=== PATIENT | male | born 1980 | race Hispanic/Latino ===

== ENCOUNTER 2018-12-13 09:37 | Emergency (ER) | payer SELFPAY ==
[2018-12-13 10:19] LABS: Absolute Lymphocytes (CBC) 1.1 K/uL (0.7-4.9); Basophils % 0.3 % (0-1.3); Hematocrit 42.9 % (39.6-49.0); Lymphocytes % 17.5 % (15.3-44.8); MPV 10.8 fL (7.6-11.3); RBC Red Blood Cell Count 4.75 M/uL (4.33-5.43)
[2018-12-13] MEDS ORDERED: NA CHLORIDE 0.9% 1,000 ML ONE (10:38)
[2018-12-13] MEDS ORDERED: ALBUTEROL 2.5 MG/3 ML NEB SOL ONE (10:38)
[2018-12-13 10:42] LABS: Albumin 3.8 g/dL (3.4-5.0); Bilirubin Direct 0.1 mg/dL (0-0.2); Bilirubin Total 0.6 mg/dL (0.2-1.0); Protein, Total 7.9 g/dL (6.4-8.2)
--- NOTE | 2018-12-13 11:14 | RAD REPORT ---
EXAM DESCRIPTION: RAD - Chest Pa And Lat (2 Views) - 12/13/2018 10:21 am CLINICAL HISTORY: COUGHcough, shortness of breath, patient reports flu like symptoms COMPARISON: None. TECHNIQUE: PA and lateral views of the chest were obtained. FINDINGS: The lungs are slightly underinflated. No consolidated parenchyma. Lung markings in each ba se are slightly prominent. No failure or volume overload. Heart size is normal and central vasculatu re is within normal limits. No pleural effusion or pneumothorax seen. No acute bony finding noted. No aortic abnormality. IMPRESSION: Minimal prominence of the bibasilar interstitial markings likely shallow inspiration art ifact. No consolidation to suspect bacterial pneumonia. Minimal interstitial edema or infiltrate in each soumya g base doubtful but not excluded.
--- NOTE | 2018-12-13 11:28 | ER ---
Nurse's Notes [facility] Name: Ismael Colbert Age: 38 yrs Sex: Male : 1980 Arrival Date: 12/13/2018 Time: 09:39 Bed 8 Private MD: Jarrett Howell T Diagnosis: Acute bronchitis;Volume depletion Presentation: 12/13 09:46 Presenting complaint: Patient states: FLU LIKE S/S x5 DAYS. Transition of care: patient bp was not received from another setting of care. Onset of symptoms is unknown. Risk Assessment: Do you want to hurt yourself or someone else? Patient reports no desire to harm self or others. Initial Sepsis Screen: Does the patient meet any 2 criteria? No. Patient's initial sepsis screen is negative. Does the patient have a suspected source of infection? No. Patient's initial sepsis screen is negative. Care prior to arrival: None. 09:46 Method Of Arrival: Ambulatory bp 09:46 Acuity: BARAK 4 bp Triage Assessment: 09:47 General: Appears in no apparent distress. comfortable, Behavior is calm, cooperative, bp appropriate for age. Pain: Denies pain. EENT: No deficits noted. Neuro: No deficits noted. Cardiovascular: Rhythm is sinus rhythm. Respiratory: Airway is patent Breath sounds are clear bilaterally. GI: No signs and/or symptoms were reported involving the gastrointestinal system. : No signs and/or symptoms were reported regarding the genitourinary system. Derm: No deficits noted. Musculoskeletal: No deficits noted. Historical: - Allergies: 09:47 No Known Allergies; bp - Home Meds: 09:47 None [Active]; bp - PMHx: 09:47 None; bp - Immunization history:: Adult Immunizations up to date. - Social history:: Smoking status: Patient/guardian denies using tobacco. - Ebola Screening: : No symptoms or risks identified at this time. Screenin:49 Abuse screen: Denies threats or abuse. Denies injuries from another. Nutritional bp screening: No deficits noted. Tuberculosis screening: No symptoms or risk factors identified. Fall Risk None identified. Assessment: 09:49 General: SEE TRIAGE NOTE. Pain: Pain does not radiate. Pain began 2-3 days ago. bp 11:37 Reassessment: D/C ON HOLD FOR IVF. bp Vital Signs: 09:47 BP 121 / 80; Pulse 83; Resp 18; Temp 98.4; Pulse Ox 98% ; Weight 98.88 kg; Height 5 ft. bp 11 in. (180.34 cm); 09:47 Body Mass Index 30.40 (98.88 kg, 180.34 cm) bp ED Course: 09:39 Patient arrived in ED. ag5 09:40 Jarrett Howell MD is Private Physician. ag5 09:46 Xiang Franco, RN is Primary Nurse. bp 09:47 Triage completed. bp 09:49 Arm band placed on right wrist. bp 09:49 Patient has correct armband on for positive identification. Bed in low position. Call bp light in reach. Side rails up X2. Pulse ox on. NIBP on. 09:49 Patient maintains SpO2 saturation greater than 95% on room air. bp 09:55 Lauren Munoz FNP-C [facility]. snw 09:55 Geovani Canela MD is Attending Physician. snw 10:16 Initial lab(s) drawn, by va, sent to lab. Inserted saline lock: 20 gauge in right ms antecubital area, using aseptic technique. Blood collected. 11:27 Jarrett Howell MD is Referral Physician. snw 12:32 No provider procedures requiring assistance completed. IV discontinued, intact, jl7 bleeding controlled, No redness/swelling at site. Pressure dressing applied. Administered Medications: 10:20 Drug: NS 0.9% 1000 ml Route: IV; Rate: 1 bolus; Site: right antecubital; bp 12:33 Follow up: IV Status: Completed infusion; IV Intake: 1000ml jl7 10:20 Drug: Albuterol 2.5 mg Route: Inhalation; bp 11:35 Drug: predniSONE 40 mg Route: PO; bp 12:33 Follow up: Response: No adverse reaction jl7 11:35 Drug: Pepcid 20 mg Route: PO; bp 12:33 Follow up: Response: No adverse reaction jl7 Intake: 12:33 IV: 1000ml; Total: 1000ml. jl7 Outcome: 11:27 Discharge ordered by . snw 12:32 Discharged to home ambulatory. jl7 12:32 Condition: stable 12:32 Discharge instructions given to patient, Instructed on discharge instructions, follow up and referral plans. medication usage, Demonstrated understanding of instructions, follow-up care, medications, Prescriptions given X 3. 12:34 Patient left the ED. jl7 Signatures: Lauren Munoz, TENNIS BALL COVER CEMENTER-C TENNIS BALL COVER CEMENTER-Anatolyw Nakia Hernandez ms, Jahala RN RN jl7 Xiang Franco, RN RN Mainor, [facility]
--- NOTE | 2018-12-13 11:28 | EDPHYS ---
Physician Documentation [facility] Name: Ismael Colbert Age: 38 yrs Sex: Male : 1980 Arrival Date: 12/13/2018 Time: 09:39 Bed 8 Private MD: Jarrett Howell T ED Physician Geovani Canela HPI: 12/13 11:09 This 38 yrs old Male presents to ER via Ambulatory with complaints of Cough, Chest snw Pain, Breathing Difficulty. 11:09 The patient or guardian reports cough, described as moderate. Onset: The snw symptoms/episode began/occurred gradually, 5 day(s) ago, and became persistent. Severity of symptoms: At their worst the symptoms were moderate, severe. Associated signs and symptoms: Pertinent positives: feels dizzy at intervals with position change. The patient has not experienced similar symptoms in the past. The patient has not recently seen a physician. Historical: - Allergies: 09:47 No Known Allergies; bp - Home Meds: 09:47 None [Active]; bp - PMHx: 09:47 None; bp - Immunization history:: Adult Immunizations up to date. - Social history:: Smoking status: Patient/guardian denies using tobacco. - Ebola Screening: : No symptoms or risks identified at this time. ROS: 11:08 Eyes: Negative for injury, pain, redness, and discharge, ENT: Negative for injury, snw pain, and discharge, Neck: Negative for injury, pain, and swelling, Cardiovascular: Negative for chest pain, palpitations, and edema. 11:08 Abdomen/GI: Negative for abdominal pain, nausea, vomiting, diarrhea, and constipation, Back: Negative for injury and pain, : Negative for injury, bleeding, discharge, and swelling, MS/Extremity: Negative for injury and deformity, Skin: Negative for injury, rash, and discoloration, Neuro: Negative for headache, weakness, numbness, tingling, and seizure. 11:08 Constitutional: Positive for body aches, malaise. 11:08 Respiratory: Positive for cough, wheezing. Exam: 11:08 Constitutional: This is a well developed, well nourished patient who is awake, alert, snw and in no acute distress. Head/Face: Normocephalic, atraumatic. Eyes: Pupils equal round and reactive to light, extra-ocular motions intact. Lids and lashes normal. Conjunctiva and sclera are non-icteric and not injected. Cornea within normal limits. Periorbital areas with no swelling, redness, or edema. ENT: Nares patent. No nasal discharge, no septal abnormalities noted. Tympanic membranes are normal and external auditory canals are clear. Oropharynx with no redness, swelling, or masses, exudates, or evidence of obstruction, uvula midline. Mucous membranes moist. Neck: Trachea midline, no thyromegaly or masses palpated, and no cervical lymphadenopathy. Supple, full range of motion without nuchal rigidity, or vertebral point tenderness. No Meningismus. Chest/axilla: Normal chest wall appearance and motion. Nontender with no deformity. No lesions are appreciated. Cardiovascular: Regular rate and rhythm with a normal S1 and S2. No gallops, murmurs, or rubs. Normal PMI, no JVD. No pulse deficits. Abdomen/GI: Soft, non-tender, with normal bowel sounds. No distension or tympany. No guarding or rebound. No evidence of tenderness throughout. Back: No spinal tenderness. No costovertebral tenderness. Full range of motion. Skin: Warm, dry with normal turgor. Normal color with no rashes, no lesions, and no evidence of cellulitis. MS/ Extremity: Pulses equal, no cyanosis. Neurovascular intact. Full, normal range of motion. Neuro: Awake and alert, GCS 15, oriented to person, place, time, and situation. Cranial nerves II-XII grossly intact. Motor strength 5/5 in all extremities. Sensory grossly intact. Cerebellar exam normal. Normal gait. Psych: Awake, alert, with orientation to person, place and time. Behavior, mood, and affect are within normal limits. 11:08 Respiratory: the patient does not display signs of respiratory distress, Respirations: normal, Breath sounds: bronchial sounds, that are moderate, are heard diffusely, wheezing: Vital Signs: 09:47 BP 121 / 80; Pulse 83; Resp 18; Temp 98.4; Pulse Ox 98% ; Weight 98.88 kg; Height 5 ft. bp 11 in. (180.34 cm); 09:47 Body Mass Index 30.40 (98.88 kg, 180.34 cm) bp MDM: 09:59 Patient medically screened. [facility] 11:29 Data reviewed: vital signs, nurses notes. Data interpreted: Pulse oximetry: on room air snw is 98 %. Interpretation: normal. Counseling: I had a detailed discussion with the patient and/or guardian regarding: the historical points, exam findings, and any diagnostic results supporting the discharge/admit diagnosis, lab results, radiology results, the need for outpatient follow up, to return to the emergency department if symptoms worsen or persist or if there are any questions or concerns that arise at home. Response to treatment: the patient's symptoms have markedly improved after treatment. Special discussion: Based on the history and exam findings, there is no indication for further emergent testing or inpatient evaluation. I discussed with the patient/guardian the need to see the primary care provider for further evaluation of the symptoms. 12/13 10:02 Order name: Basic Metabolic Panel snw 12/13 10:02 Order name: CBC with Diff snw 12/13 10:02 Order name: Creatinine for Radiology snw 12/13 10:02 Order name: Hepatic Function snw 12/13 10:02 Order name: Strep snw 12/13 10:21 Order name: CBC with Automated Diff; Complete Time: 10:26 EDMS 12/13 10:02 Order name: Chest Pa And Lat (2 Views) XRAY snw 12/13 10:23 Order name: Group A Streptococcus Rapid Sc; Complete Time: 10:26 EDMS 12/13 10:45 Order name: Basic Metabolic Panel; Complete Time: 10:49 EDMS 12/13 10:45 Order name: Liver (Hepatic) Function; Complete Time: 10:49 EDMS 12/13 10:58 Order name: Creatinine (Radiology Only); Complete Time: 11:03 EDMS 12/13 12:04 Order name: Throat Culture EDMS 12/13 12:16 Order name: RAD; Complete Time: 12:17 EDMS 12/13 10:02 Order name: Labs collected and sent; Complete Time: 10:07 snw Administered Medications: 10:20 Drug: NS 0.9% 1000 ml Route: IV; Rate: 1 bolus; Site: right antecubital; bp 12:33 Follow up: IV Status: Completed infusion; IV Intake: 1000ml jl7 10:20 Drug: Albuterol 2.5 mg Route: Inhalation; bp 11:35 Drug: predniSONE 40 mg Route: PO; bp 12:33 Follow up: Response: No adverse reaction jl7 11:35 Drug: Pepcid 20 mg Route: PO; bp 12:33 Follow up: Response: No adverse reaction jl7 Disposition: 15:50 Co-signature as Attending Physician, Geovani Canela MD I agree with the assessment and heather plan of care. Disposition: 12/13/18 11:27 Discharged to Home. Impression: Acute bronchitis, Volume depletion. - Condition is Stable. - Discharge Instructions: Acute Bronchitis, Adult, Heat Exhaustion Information, Rehydration, Adult. - Prescriptions for Prednisone 20 mg Oral Tablet - take 2 tablet by ORAL route once daily for 5 days; 10 tablet. Albuterol Sulfate 90 mcg/actuation - inhale 1-2 puff by INHALATION route every 4-6 hours; 1 Inhaler. Pepcid 20 mg Oral Tablet - take 1 tablet by ORAL route once daily for 10 days; 10 tablet. - Work release form, Medication Reconciliation Form, Thank You Letter, Antibiotic Education, Prescription Opioid Use form. - Follow up: Jarrett Howell MD; When: 2 - 3 days; Reason: Recheck today's complaints, Continuance of care, Re-evaluation by your physician. Follow up: Emergency Department; When: As needed; Reason: Worsening of condition. Signatures: Dispatcher [employer] EDID Geovani Canela MD MD cha Therrien, Shelly, HALL DIRECTOR-C HALL DIRECTOR-Anatolyw Rachael Dumont RN RN jl7 Xiang Franco RN RN bp Corrections: (The following items were deleted from the chart) 12:34 11:27 12/13/2018 11:27 Discharged to Home. Impression: Acute bronchitis; Volume jl7 depletion. Condition is Stable. Forms are Medication Reconciliation Form, Thank You Letter, Antibiotic Education, Prescription Opioid Use. Follow up: Jarrett Howell; When: 2 - 3 days; Reason: Recheck today's complaints, Continuance of care, Re-evaluation by your physician. Follow up: Emergency Department; When: As needed; Reason: Worsening of condition. snw
[2018-12-13] MEDS ORDERED: predniSONE 20 MG TAB ONE (11:43)
[2018-12-13] MEDS ORDERED: FAMOTIDINE 20 MG TAB ONE (11:43)
== END 2018-12-13 12:34 | disposition home or self-care (01) ==
LOC: ER 09:37
DX: J20.9 Acute bronchitis, unspecified (principal); E86.9 Volume depletion, unspecified
CPT/HCPCS: 36415; 71046; 80048; 80076; 85025; 87070; 87081; 96360; 96361; 99285; J7030; J7512

== ENCOUNTER 2018-12-16 16:16 | Emergency (ER) | payer OTHER, SELFPAY ==
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
[2018-12-16 19:33] VITALS: BP 129/88; TEMP 98.3; O2SAT 98
== END 2018-12-16 17:12 | disposition home or self-care (01) ==
LOC: ER 16:16
DX: J02.9 Acute pharyngitis, unspecified (principal); J06.9 Acute upper respiratory infection, unspecified; Z72.0 Tobacco use
CPT/HCPCS: 87081; 99283

== ENCOUNTER 2023-09-26 19:43 | Inpatient (IN) | payer OTHER, SELFPAY ==
[2023-09-26] MEDS ORDERED: FAMOTIDINE 20 MG/2 ML VIAL IV ONE (20:46)
[2023-09-26] MEDS ORDERED: KETOROLAC 30 MG/ML INJ ONE (20:46)
[2023-09-26] MEDS ORDERED: NA CHLORIDE 0.9% 1,000 ML ONE (20:46)
[2023-09-26] MEDS ORDERED: ONDANSETRON 4 MG/2 ML VIAL ONE (20:46)
[2023-09-26 20:53] LABS: Absolute Eosinophils 0.2 K/uL (0-0.5); Absolute Lymphocytes (CBC) 1.6 K/uL (0.7-4.9); Absolute Monocytes 0.7 K/uL (0.1-1.3); Absolute Neutrophil 8.4 K/uL (1.8-8.0); Basophils % 0.3 % (0-1.3); Eosinophils % 2.3 % (0-4.4); Hematocrit 41.7 % (39.6-49.0); Hemoglobin 14.2 g/dL (13.6-17.9); Lymphocytes % 14.5 % (15.3-44.8); MCH 30.6 pg (27.0-35.0); MCHC 34.1 g/dL (32.0-36.0); MCV 89.6 fL (80-100); MPV 10.6 fL (7.6-11.3); Monocytes % 6.2 % (3.3-12.3); Neutrophils % 76.7 % (41.7-73.7); Nucleated RBC Absolute Count 0.1 (0-0); Nucleated Red Blood Cells % 0.9 % (0-0); Platelets 187 thou/uL (152-406); RBC Red Blood Cell Count 4.65 M/uL (4.33-5.43); Red Cell Distribution Width 13.3 % (12.1-15.2)
[2023-09-26 21:13] LABS: Albumin 3.3 g/dL (3.4-5.0); Albumin/Globulin Ratio 0.7 (1.1-1.8); Anion Gap 9.4 mEq/L (5.0-15.0); Bilirubin Total 0.5 mg/dL (0.2-1.0); Globulin 4.6 g/dL (2.3-3.5); Potassium 3.4 mEq/L (3.5-5.1); Protein, Total 7.9 g/dL (6.4-8.2)
--- NOTE | 2023-09-26 23:00 | RAD REPORT ---
EXAM DESCRIPTION: US - Abdomen Exam Limited - 09/26/2023 9:44 pm CLINICAL HISTORY: ABD PAIN COMPARISON: No comparisons TECHNIQUE: Sonographic grayscale and color flow images of the right upper abdominal quadrant were o btained. FINDINGS: The gallbladder demonstrates a 2.1 cm shadowing stone near the neck. No pericholecystic fl uid or gallbladder wall thickening. The common bile duct is normal measuring 3 mm. The liver demonstrates no findings of intrahepatic biliary dilatation. IMPRESSION: Large gallstone near the neck. No sonographic findings to suggest acute cholecystitis.
[2023-09-26] MEDS ORDERED: MORPHINE 4 MG/ML SYR ONE (23:29)
[2023-09-26] MEDS ORDERED: PIPERACIL/TAZO 3.375 GM VIAL IV ONE (23:54)
[2023-09-26] MEDS ORDERED: NA CHLORIDE 0.9% 100 ML ONE (23:54)
[2023-09-26] MEDS ORDERED: ONDANSETRON 4 MG/2 ML VIAL IV PRN (23:57)
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
[2023-09-27] MEDS ORDERED: HYDRALAZINE HCL 20 MG/ML VIAL IV PRN (00:01)
--- NOTE | 2023-09-27 00:25 | EDPHYS ---
Physician Documentation [facility] Name: Ismael Colbert Age: 43 yrs Sex: Male : 1980 Arrival Date: 09/26/2023 Time: 19:43 Bed 20 Private MD: ED Physician Brien Magaña HPI: 09/25 22:50 This 43 yrs old Male presents to ER via Ambulatory with complaints of right kb side pain. 22:50 Pt is a 43 year old male who presents for RUQ pain that started Sunday, resolved and kb returned last night. reports vomiting on Sunday only. Denies fever. . Historical: - Allergies: 20:10 No Known Allergies; ha1 - PMHx: 20:10 None; ha1 - Immunization history:: Adult Immunizations up to date. - Infectious Disease History:: Denies. - Social history:: Smoking status: Patient/guardian denies using tobacco, the patient reports quitting approximately 1 years ago. ROS: 22:49 Constitutional: As per HPI kb Exam: 22:49 Constitutional: This is a well developed, well nourished patient who is awake, alert, kb and in no acute distress. Head/Face: Normocephalic, atraumatic. ENT: Moist Mucous membranes Cardiovascular: Regular rate Respiratory: Respirations even and unlabored. No increased work of breathing. Talking in full sentences Skin: Warm, dry with normal turgor. Normal color. MS/ Extremity: Pulses equal, no cyanosis. Neurovascular intact. Full, normal range of motion. Neuro: Awake and alert, GCS 15, oriented to person, place, time, and situation. Moves all extremities. Normal gait. 22:49 Abdomen/GI: Inspection: abdomen appears normal, Bowel sounds: normal, Palpation: soft, in all quadrants, moderate abdominal tenderness, in the right upper quadrant, Vital Signs: 20:01 BP 142 / 87; Pulse 103; Resp 20 S; Temp 98.6(T); Pulse Ox 97% on R/A; Weight 105.69 kg; ha1 Height 5 ft. 11 in. ; Pain 9/10; 22:00 BP 145 / 89; Pulse 86; Resp 18; Pulse Ox 99% ; cp4 23:00 BP 145 / 85; Pulse 86; Resp 18; Pulse Ox 97% ; cp4 09/26 00:00 BP 124 / 80; Pulse 77; Resp 18; Pulse Ox 99% ; cp4 01:00 BP 133 / 92; Pulse 74; Resp 18; Pulse Ox 99% ; cp4 09/25 20:01 Body Mass Index 32.50 (105.69 kg, 180.34 cm) ha1 09/25 20:01 Pain Scale: Adult ha1 MDM: 09/25 19:51 Patient medically screened. kb 22:49 Differential diagnosis: pancreatitis, cholecystitis, cholelithiasis, GERD. Data kb reviewed: vital signs, nurses notes. 23:22 Historians other than the Patient: Spouse/Significant Other: . kb 23:30 ED course: Pt still having pain. Discussed outpatient follow up vs admission. Pt kb requests admission due to pain.. 23:46 Consideration of Admission/Observation Patient was admitted/placed on observation. kb Escalation of care including admission/observation considered. Management of patient was discussed with the following: Hospitalist: Dr Nguyen accepts pt for admission. Gut Snatcher: Dr Jaramillo accepts pt for consult. Wants NPO, abx, MRCP in the AM and admit to hospitalist. All of this was communicated to hospitalist. . Counseling: I had a detailed discussion with the patient and/or guardian regarding the historical points, exam findings, and any diagnostic results supporting the discharge/admit diagnosis, lab results, radiology results, the need for further work-up and treatment in the hospital. 09/25 20:41 Order name: CBC with Diff; Complete Time: 20:57 kb 09/25 20:41 Order name: CMP; Complete Time: 21:23 kb 09/25 20:41 Order name: Lipase; Complete Time: 21:23 kb 09/26 00:25 Order name: Thyroid Stimulating Hormone EDMS 09/26 00:25 Order name: CBC with Automated Diff EDMS 09/26 00:25 Order name: CBC with Automated Diff EDMS 09/26 00:25 Order name: Comprehensive Metabolic Panel EDMS 09/26 00:25 Order name: Comprehensive Metabolic Panel EDMS 09/26 00:25 Order name: Magnesium EDMS 09/26 00:25 Order name: Magnesium EDMS 09/26 00:25 Order name: Magnesium EDMS 09/26 00:25 Order name: Magnesium EDMS 09/25 20:41 Order name: Abdomen Limited US; Complete Time: 00:26 kb 09/26 00:25 Order name: CONS Physician Consult EDLA 09/25 20:41 Order name: IV Saline Lock; Complete Time: 20:43 kb 09/25 20:41 Order name: Labs collected and sent; Complete Time: 20:43 kb Administered Medications: 20:51 Drug: NS 0.9% IV 1000 ml IV at 1 bolus Per protocol; 1000 mL bolus Route: IV; Rate: 1 cp4 bolus; Site: left forearm; 20:51 Drug: Famotidine IVP 20 mg IVP once; dilute with 10 mL 0.9% NaCl; give over 2 minutes cp4 Route: IVP; Site: left forearm; 20:51 Drug: Ondansetron IVP 4 mg IVP once; over 2 minutes Route: IVP; Site: left forearm; cp4 20:52 Drug: TORadol - Ketorolac IVP 15 mg IVP once Route: IVP; Site: left forearm; cp4 23:31 Drug: morphine IVP or IV 4 mg IVP once over 4 mins Route: IVP; Infused Over: 4 mins; cp4 Site: left forearm; 09/26 01:08 Follow up: Response: No adverse reaction; Pain is decreased cp4 00:03 Drug: Piperacillin-Tazobactam IVPB 3.375 grams IVPB once over 60 mins; (mix in NS 100 cp4 mL) Route: IVPB; Infused Over: 60 mins; Site: left forearm; 01:08 Follow up: Response: No adverse reaction; IV Status: Completed infusion cp4 Disposition Summary: 09/26/23 23:47 Hospitalization Ordered Notes: Hospitalization Status: Observation kb Provider: Ronak Nguyen Location: Telemetry/MedSurg (observation) kb Condition: Stable kb Problem: new kb Symptoms: are unchanged kb Bed/Room Type: Standard Room Assignment: 208(09/27/23 00:45) kmf Diagnosis - Other cholelithiasis without obstruction kb Forms: - Medication Reconciliation Form kb - SBAR form kb - Leadership Thank You Letter kb Signatures: Dispatcher [employer] [facility] Mariana Staton FNP-C FNP-Ckb Ayala, Heidy, RN RN haZahra Robb cp4 Tanvi Flower kmf Corrections: (The following items were deleted from the chart) 09/25 23:31 23:22 Counseling: I had a detailed discussion with the patient and/or guardian lizeth regarding the historical points, exam findings, and any diagnostic results supporting the discharge/admit diagnosis, lab results, radiology results, the need for outpatient follow up, a general surgeon, to return to the emergency department if symptoms worsen or persist or if there are any questions or concerns that arise at home, lizeth 09/26 00:45 09/25 23:47 lizeth grossman
--- NOTE | 2023-09-27 00:25 | ER ---
Nurse's Notes [facility] Name: Ismael Colbert Age: 43 yrs Sex: Male : 1980 Arrival Date: 09/26/2023 Time: 19:43 Bed 20 Private MD: Diagnosis: Other cholelithiasis without obstruction Presentation: 09/25 20:01 Chief complaint: Patient states: On Sunday I had N/V then I felt better but since the ha1 last two days I have been feeling a horrible RUQ pain that is not going away. 20:01 Coronavirus screen: Vaccine status: Patient reports being unvaccinated. Ebola Screen: ha1 No symptoms or risks identified at this time. Initial Sepsis Screen: Does the patient meet any 2 criteria? No. Patient's initial sepsis screen is negative. Does the patient have a suspected source of infection? No. Patient's initial sepsis screen is negative. Risk Assessment: Do you want to hurt yourself or someone else? Patient reports no desire to harm self or others. Onset of symptoms was September 26, 2023. 20:01 Method Of Arrival: Ambulatory ha1 20:01 Acuity: BARAK 3 ha1 Triage Assessment: 20:01 General: Appears uncomfortable, Behavior is cooperative. Pain: Complains of pain in ha1 right upper quadrant Pain does not radiate. Pain currently is 9 out of 10 on a pain scale. Quality of pain is described as throbbing, Pain began 2-3 days ago. Neuro: Level of Consciousness is awake, alert, obeys commands, Oriented to person, place, time, situation. Respiratory: Airway is patent Respiratory effort is even, unlabored, Respiratory pattern is regular, symmetrical. Derm: Skin is pink, warm \T\ dry. Historical: - Allergies: 20:10 No Known Allergies; ha1 - PMHx: 20:10 None; ha1 - Immunization history:: Adult Immunizations up to date. - Infectious Disease History:: Denies. - Social history:: Smoking status: Patient/guardian denies using tobacco, the patient reports quitting approximately 1 years ago. Screenin:11 Abuse screen: Denies threats or abuse. Denies injuries from another. Nutritional ha1 screening: No deficits noted. Tuberculosis screening: No symptoms or risk factors identified. 20:53 [facility] ED Fall Risk Assessment (Adult) History of falling in the last 3 months, cp4 including since admission No falls in past 3 months (0 pts) Confusion or Disorientation No (0 pts) Intoxicated or Sedated No (0 pts) Impaired Gait No (0 pts) Mobility Assist Device Used No (0 pt) Altered Elimination No (0 pt) Score/Fall Risk Level 0 - 2 = Low Risk Oriented to surroundings, Maintained a safe environment, Assessed \T\ reinforced patient's understanding of fall precautions, Hourly rounding (assess needs \T\ fall precautionary measures) done. Assessment: 20:52 Pain: Complains of pain in abdomen and right upper quadrant. GI: Bowel sounds present X cp4 4 quads. Abdomen is tender to palpation in abdomen and right upper quadrant Reports nausea, vomiting. Vital Signs: 20:01 BP 142 / 87; Pulse 103; Resp 20 S; Temp 98.6(T); Pulse Ox 97% on R/A; Weight 105.69 kg; ha1 Height 5 ft. 11 in. ; Pain 9/10; 22:00 BP 145 / 89; Pulse 86; Resp 18; Pulse Ox 99% ; cp4 23:00 BP 145 / 85; Pulse 86; Resp 18; Pulse Ox 97% ; cp4 09/26 00:00 BP 124 / 80; Pulse 77; Resp 18; Pulse Ox 99% ; cp4 01:00 BP 133 / 92; Pulse 74; Resp 18; Pulse Ox 99% ; cp4 09/25 20:01 Body Mass Index 32.50 (105.69 kg, 180.34 cm) ha1 09/25 20:01 Pain Scale: Adult [facility] ED Course: 09/25 19:46 Patient arrived in ED. ra3 19:46 Mariana Staton FNP-C [facility] kb 19:46 Brien Magaña MD is Attending Physician. kb 20:06 Zahra Calhoun is Primary Nurse. cp4 20:09 Triage completed. ha1 20:17 Inserted saline lock: 20 gauge in left forearm, using aseptic technique. Blood rc3 collected. 20:43 Abdomen Limited US Sent. cp4 20:43 CBC with Diff Sent. cp4 20:43 CMP Sent. cp4 20:43 Lipase Sent. cp4 20:52 No provider procedures requiring assistance completed. cp4 20:53 Bed in low position. Call light in reach. Side rails up X2. Provided Education on: cp4 abdominal pain. 21:44 Abdomen Limited US In Process Unspecified. EDMS 23:47 Ronak Nguyen MD is Hospitalizing Provider. lizeth 09/26 01:53 Patient admitted, IV remains in place. cp4 01:53 Arm band placed on right wrist. Patient placed in an exam room, on a stretcher. cp4 Administered Medications: 09/25 20:51 Drug: NS 0.9% IV 1000 ml IV at 1 bolus Per protocol; 1000 mL bolus Route: IV; Rate: 1 cp4 bolus; Site: left forearm; 20:51 Drug: Famotidine IVP 20 mg IVP once; dilute with 10 mL 0.9% NaCl; give over 2 minutes cp4 Route: IVP; Site: left forearm; 20:51 Drug: Ondansetron IVP 4 mg IVP once; over 2 minutes Route: IVP; Site: left forearm; cp4 20:52 Drug: TORadol - Ketorolac IVP 15 mg IVP once Route: IVP; Site: left forearm; cp4 23:31 Drug: morphine IVP or IV 4 mg IVP once over 4 mins Route: IVP; Infused Over: 4 mins; cp4 Site: left forearm; 09/26 01:08 Follow up: Response: No adverse reaction; Pain is decreased cp4 00:03 Drug: Piperacillin-Tazobactam IVPB 3.375 grams IVPB once over 60 mins; (mix in NS 100 cp4 mL) Route: IVPB; Infused Over: 60 mins; Site: left forearm; 01:08 Follow up: Response: No adverse reaction; IV Status: Completed infusion cp4 Medication: 09/25 20:53 VIS not applicable for this client. cp4 Outcome: 23:47 Decision to Hospitalize by Provider. kb 09/26 01:53 Admitted to Med/surg accompanied by tech, via wheelchair, with chart, cp4 Condition: stable Instructed on the need for admit, 01:53 Patient left the ED. cp4 Signatures: Dispatcher [employer] EDMS Mariana Staton, XOCHITL TORRES-Vale Prasad RN RN haZahra Robb cp4 Mira Summers ra3 Willa Lopez3
[2023-09-27 00:54] LABS: Magnesium 2.4 mg/dL (1.6-2.4); Thyroid Stimulating Hormone 3.62 uIU/mL (0.358-3.740)
[2023-09-27] MEDS: POTASSIUM PHOS 30 MM in NA CHLORIDE 0.9% 500 ML IV ONE (02:00)
[2023-09-27] MEDS: Ringers Lactate 1,000 ML IV ONE ×2 (02:24→11:34)
[2023-09-27] MEDS: MORPHINE 4 MG/ML SYR ONE ×2 (02:29→06:34)
[2023-09-27] MEDS: Ringers Lactate 1,000 ML IV SCH (02:36)
[2023-09-27] MEDS: MORPHINE 2 MG/ML SYR IV PRN (02:36)
[2023-09-27] MEDS: POTASSIUM PHOS IN 0.9 % NACL 30 MMOL/500 ML BAG IV ONE (02:46)
[2023-09-27 02:56] VITALS: BMI 32.5
[2023-09-27] MEDS ORDERED: MORPHINE 4 MG/ML SYR IV PRN (05:02)
[2023-09-27 05:17] LABS: Absolute Eosinophils 0.3 K/uL (0-0.5); Absolute Monocytes 0.8 K/uL (0.1-1.3); Absolute Neutrophil 6.5 K/uL (1.8-8.0); Basophils % 0.4 % (0-1.3); Eosinophils % 2.7 % (0-4.4); Hematocrit 37.9 % (39.6-49.0); Lymphocytes % 20.4 % (15.3-44.8); MCH 30.9 pg (27.0-35.0); MCHC 34.4 g/dL (32.0-36.0); MCV 89.9 fL (80-100); MPV 10.5 fL (7.6-11.3); Monocytes % 8.7 % (3.3-12.3); Neutrophils % 67.8 % (41.7-73.7); Nucleated Red Blood Cells % 0.1 % (0-0); Platelets 177 thou/uL (152-406); RBC Red Blood Cell Count 4.21 M/uL (4.33-5.43); Red Cell Distribution Width 13.3 % (12.1-15.2)
[2023-09-27 05:24] LABS: Albumin/Globulin Ratio 0.8 (1.1-1.8); Anion Gap 9.9 mEq/L (5.0-15.0); Bilirubin Total 0.5 mg/dL (0.2-1.0); Potassium 3.9 mEq/L (3.5-5.1)
[2023-09-27] MEDS: INSULIN REGULAR (HUMAN) 100 UNIT/ML SQ SCH (06:00)
[2023-09-27] MEDS: MORPHINE 4 MG/ML SYR IV PRN (06:38)
--- NOTE | 2023-09-27 07:25 | P.PN ---
Date of Service: 09/27/23 Subjective: abdominal pain started ~sunday tentative plan for surgery today with Dr. Jaramillo afebrile continues with RUQ pain/tenderness ROS: 10 point ROS as noted above, otherwise negative Physical Exam: GEN: Alert, oriented, NAD HEENT: Normal conjunctiva, sclera anicteric CV: Regular rate and rhythm, no edema Pulm: Nonlabored respirations on room air, clear bilaterally ABD: Soft, TTP in RUQ vitals reviewed Problem List: acute cholecystitis with cholelithiasis Mildly elevated LFTs Presented with worsening epigastric/RUQ pain with nausea/vomiting CT abdomen (09/25): Large gallstone near the neck (2.1cm). No sonographic findings to suggest acute cholecystitis Dr. Jaramillo, general surgeon consulted MRCP (09/26): 1.9 cm gallstone near the neck with mild gallbladder wall thickening. No biliary ductal dilation. Trace RUQ fluid NPO for tentative lap cholecystectomy today empiric cefepine (09/26-) Pain control LFTs improving Code: Full Dispo: Home, ~1 day Pending surgery / recovery
[2023-09-27] MEDS: CEFEPIME 1 GM in NA CHLORIDE 0.9% 100 ML IV SCH (08:47)
[2023-09-27] MEDS: ENOXAPARIN 40 MG/0.4 ML SQ SCH (08:49)
[2023-09-27] MEDS: FAMOTIDINE 20 MG/2 ML VIAL IV SCH (08:49)
--- NOTE | 2023-09-27 09:13 | RAD REPORT ---
EXAM DESCRIPTION: MRI - Cholangiogram - 09/27/2023 8:13 am CLINICAL HISTORY: cholelithiasis, r/o cbd stone/obstruction COMPARISON: Abdomen Exam Limited dated 09/26/2023 TECHNIQUE: Multiplanar multisequence MRI of the abdomen, obtained without IV contrast, utilizing M CERTIFIED REGISTERED LOCKSMITH sequences. FINDINGS: Single 1.9 cm calculus near the neck of the gallbladder. Mild gallbladder wall thickening appreciated particularly at the fundus up to 5 mm. No intrahepatic biliary ductal dilation. Common bile duct is mildly prominent in caliber, 6 millimeter. No filling defects to suggest choledoc holithiasis. Smooth tapering at the ampulla. Main pancreatic duct is not dilated. The visualized aspects of the liver, spleen, adrenal glands, pancreas, and kidneys are unremarkable. Visualized aspects of the bowel are unremarkable. No suspicious osseous lesions. Trace fluid along the right hepatic flexure and inferior margin of the right lobe. IMPRESSION: Single 1.9 cm gallstone near the neck. Mild gallbladder wall thickening. Please correlate clinically for evidence of acute cholecystitis. No intra or extrahepatic biliary ductal dilation. No evidence of choledocholithiasis. Trace right upper quadrant fluid, nonspecific.
[2023-09-27] MEDS ORDERED: FENTANYL CITR 100 MCG/2 ML ONE ×2 (10:31→12:10)
[2023-09-27] MEDS ORDERED: KETOROLAC 30 MG/ML INJ ONE (10:31)
[2023-09-27] MEDS ORDERED: ONDANSETRON 4 MG/2 ML VIAL ONE (10:31)
[2023-09-27] MEDS ORDERED: propofoL 200 MG/20 ML VIAL IV ONE (10:31)
[2023-09-27] MEDS ORDERED: LIDOCAINE 1% MPF 5 ML VIAL ONE (10:31)
[2023-09-27] MEDS ORDERED: MIDAZOLAM HCL 2 MG/2 ML INJ ONE (10:31)
[2023-09-27] MEDS ORDERED: ROCURONIUM 50 MG/5 ML VIAL IV ONE ×2 (10:31→12:26)
[2023-09-27] MEDS ORDERED: NEOSTIGMINE 1 MG/ML -10 ML VIAL ONE (12:43)
[2023-09-27] MEDS ORDERED: GLYCOPYRROLATE 0.2 MG/ML SYR ONE ×3 (12:44)
--- NOTE | 2023-09-27 13:25 | P.OP ---
Date of Service: 09/27/23 Preop diagnosis: Acute cholecystitis and cholelithiasis Postop diagnosis: Acute ischemic cholecystitis and cholelithiasis with extensive adhesions Procedure performed: Laparoscopic cholecystectomy and lysis of adhesions Surgeon: Conor Jaramillo MD Program Management Analyst: Karin LYMAN Estimated blood loss: Minimal Specimen: Gallbladder Findings: As above Anesthesia: General Complications: None Drains: EL #10 flat Fluids and blood products: Nonapplicable Disposition: Recovery room Operative note: Patient brought to the OR and placed in supine position. General anesthesia began. Patient prepped and draped in usual sterile fashion. Marcaine 0.5% infiltrated locally. 15 blade used to make a 1 cm supraumbilical midline incision. Subcutaneous tissue divided. Bleeding controlled cautery. Fascia identified and divided. #1 Vicryl stay suture placed. Peritoneal cavity entered with sharp and blunt dissection. Pneumoperitoneum established. Three 5 mm trocars placed into the peritoneal cavity under direct vision. 1 trocar placed in the epigastric region just to the right of midline into 5 mm trocar placed in the right subcostal region. Laparoscopy revealed extensive adhesions to the gallbladder. Harmonic scalpel utilized to take the adhesions down until the gallbladder was identified. It was distended. Gallbladder was aspirated of bile to allow for drainage of bile and better grasping of the fundus. Patient has ischemic changes on the gallbladder consistent with ischemic cholecystitis. Subsequently infundibulum identified and retracted inferolaterally. Cystic artery and cystic duct clearly identified with blunt dissection. Both structures divided. Cautery used to remove the gallbladder from the liver bed. The gallbladder was intrahepatic and very inflamed. Moderate amount of oozing was noted from the gallbladder bed. This was controlled with cautery. After the gallbladder was removed and via the Endo Catch bag through the umbilicus, Sharon and Surgicel was utilized in the standard fashion after thorough irrigation. All bleeding and oozing ceased at this point. As a safety measure, Shemar-Haro drain #10 flat placed in the gallbladder fossa. The drain secured with 3-0 nylon. No evidence of bleeding or bile leakage appreciated. All trocars removed under direct vision. #1 Vicryl used to close the fascial defect. Wound irrigated and bleeding controlled cautery. 3-0 chromic used close subcutaneous tissue. And staple used to close skin. Sterile dressing applied. Patient awakened and taken to recovery room in good general condition. CC:
[2023-09-27] MEDS: HYDROMORPHONE HCL 1 MG/ML INJ ONE (14:05)
--- NOTE | 2023-09-27 17:17 | PREOPCON ---
Date of Consultation: 09/27/2023 Reason For Consultation: Abdominal pain. History Of Present Illness: The patient is a 43-year-old gentleman who presents to the emergency [facility] with 3-day history of epigastric and right upper quadrant abdominal pain. He vomited on Sunday, pa in free Sunday, but the pain returned on Sunday, got worse yesterday and came to the emergency room. He denies any sore throat, runny nose, cough, headaches, or dizziness. No chest pain. No fever or chills. No diarrhea, constipation, blood in stool. No dysuria or hematuria. Review of Systems: Otherwise unremarkable. Past Medical History: Negative. Past Surgical History: Negative. Allergies: NO ALLERGIES. Social History: The patient quit smoking approximately a year ago. Does not drink alcohol. Family History: Noncontributory. Physical Examination: Vital Signs: Stable. He is currently afebrile. General: He is awake, alert, oriented x3. Head and Neck: There is no evidence of icterus. No neck masses. No JVD. Throat clear. Neck is diaz pple. Chest: Clear. Heart: S1, S2. Abdomen: Soft, nondistended. Positive bowel sounds. Positive epigastric and right upper quadrant t enderness with rebound in the right upper quadrant. No rigidity or guarding. Extremities: Adequately perfused, nontender. Neuro: Nonfocal. Laboratory Data: Reviewed on admission. Patient has a slight white count with a left shift. He als o had slight elevation of the AST and ALT. His lipase was normal. His total bilirubin was normal. He had a CT of the abdomen and pelvis as well as an MRCP done, which revealed acute cholecystitis and cholelithiasis without evidence of choledocholithiasis. Assessment: Acute cholecystitis and cholelithiasis. Recommendation: Admit n.p.o., IV fluid, IV antibiotic, to the OR for a laparoscopic cholecystectomy possible open. The patient understands risks, benefits, alternatives, and agrees to procedure. /MODL Voice ID: [id number] Report ID: [id number]
[2023-09-27 17:36] LABS: Absolute Eosinophils 0.1 K/uL (0-0.5); Absolute Lymphocytes (CBC) 1.3 K/uL (0.7-4.9); Absolute Monocytes 0.7 K/uL (0.1-1.3); Absolute Neutrophil 7.1 K/uL (1.8-8.0); Basophils % 0.3 % (0-1.3); Eosinophils % 1.5 % (0-4.4); Hematocrit 38.2 % (39.6-49.0); Hemoglobin 12.8 g/dL (13.6-17.9); Lymphocytes % 14.1 % (15.3-44.8); MCH 30.1 pg (27.0-35.0); MCHC 33.5 g/dL (32.0-36.0); MCV 89.8 fL (80-100); Monocytes % 7.2 % (3.3-12.3); Neutrophils % 76.9 % (41.7-73.7); Nucleated Red Blood Cells % 0.1 % (0-0); Platelets 194 thou/uL (152-406); RBC Red Blood Cell Count 4.25 M/uL (4.33-5.43); Red Cell Distribution Width 13.3 % (12.1-15.2)
[2023-09-27] MEDS: ONDANSETRON 4 MG/2 ML VIAL IV PRN (18:14)
[2023-09-27] MEDS: HYDROCODONE/APAP 7.5/325 MG TAB PO PRN (18:14)
[2023-09-27] MEDS: HYDROMORPHONE HCL 1 MG/ML INJ IV PRN (20:16)
[2023-09-28 04:27] LABS: Anion Gap 5.8 mEq/L (5.0-15.0); Phosphorus 3.4 mg/dL (2.5-4.9); Potassium 3.8 mEq/L (3.5-5.1)
[2023-09-28 09:02] LABS: Absolute Eosinophils 0.1 K/uL (0-0.5); Absolute Lymphocytes (CBC) 1.2 K/uL (0.7-4.9); Absolute Monocytes 0.6 K/uL (0.1-1.3); Absolute Neutrophil 6.4 K/uL (1.8-8.0); Basophils % 0.3 % (0-1.3); Eosinophils % 1.5 % (0-4.4); Hematocrit 36.5 % (39.6-49.0); Hemoglobin 12.3 g/dL (13.6-17.9); Lymphocytes % 14.6 % (15.3-44.8); MCH 30.4 pg (27.0-35.0); MCHC 33.7 g/dL (32.0-36.0); MCV 90.2 fL (80-100); MPV 10.1 fL (7.6-11.3); Monocytes % 7.5 % (3.3-12.3); Neutrophils % 76.1 % (41.7-73.7); Platelets 199 thou/uL (152-406); RBC Red Blood Cell Count 4.05 M/uL (4.33-5.43); Red Cell Distribution Width 13.2 % (12.1-15.2)
--- NOTE | 2023-09-28 09:57 | P.PN ---
Date of Service: 09/28/23 Subjective: unable to tolerate much PO intake yesterday d/t nausea and vomiting. now tolerating some breakfast this morning without issues ambulating around the floor still dealing with abdominal pain but improving; +still very tender drainage around EL drain / dressing no BM, no flatus ROS: 10 point ROS as noted above, otherwise negative Physical Exam: GEN: Alert, oriented, NAD HEENT: Normal conjunctiva, sclera anicteric CV: Regular rate and rhythm, no edema Pulm: Nonlabored respirations on room air, clear bilaterally ABD: mild distention, TTP throughout; EL drain in place vitals reviewed Problem List: Acute ischemic cholecystitis with cholelithiasis, s/p lap endy with lysis of adhesions (09/26) Mildly elevated LFTs, improved Presented with worsening epigastric/RUQ pain with nausea/vomiting CT abdomen (09/25): Large gallstone near the neck (2.1cm). No sonographic findings to suggest acute cholecystitis Dr. Jaramillo, general surgeon consulted MRCP (09/26): 1.9 cm gallstone near the neck with mild gallbladder wall thickening. No biliary ductal dilation. Trace RUQ fluid Found to have ischemic gallbladder, extensive adhesions in OR. s/p lap endy with lysis of adhesions (09/26) Pain control pepcid BID empiric cefepine (09/26-) Pain improving slowly LFTs improved Code: Full Dispo: Home, ~1 day Pending better pain control / tolerating diet
[2023-09-28] MEDS ORDERED: HYDROMORPHONE HCL 0.5 MG/0.5 ML INJ IV PRN (12:17)
--- NOTE | 2023-09-28 14:51 | PN ---
Date of Progress Note: 09/28/2023 Subjective: The patient is awake, alert, tolerating clear liquids. He did vomit last night after hi s initial attempted clear liquids. However, he is doing better this morning and ate his breakfast an d no nausea or vomiting. His pain is controlled on oral pain medicine. He is ambulating. Objective: Vital Signs: Stable. He is afebrile. Shemar-Haro drain put out 15 cc over the last 1 2 hours. His dressings are clean, dry, intact. Abdomen: Slightly distended but nontender Laboratory Data: Reviewed. His H and H are stable. Hemoglobin is 12.3 and hematocrit is 36.5. Assessment: Status post laparoscopic cholecystectomy and lysis of adhesion. Recommendations: Encourage ambulation, slowly advance diet. Continue IV antibiotics. Likely discha rge in a.m. Continue EL drain for the time being. May take it out before discharge tomorrow dependi ng upon the amount. In the meantime, we will educate the patient and family on the care of the drain . Encourage incentive spirometry as well. /MODL Voice ID: [id number] Report ID: [id number]
[2023-09-28] MEDS: DOCUSATE NA 100 MG CAP PO SCH (15:49)
[2023-09-29 06:47] LABS: Absolute Eosinophils 0.1 K/uL (0-0.5); Absolute Lymphocytes (CBC) 1.9 K/uL (0.7-4.9); Absolute Monocytes 0.6 K/uL (0.1-1.3); Absolute Neutrophil 4.5 K/uL (1.8-8.0); Basophils % 0.4 % (0-1.3); Hematocrit 36.4 % (39.6-49.0); Hemoglobin 12.6 g/dL (13.6-17.9); Lymphocytes % 26.2 % (15.3-44.8); MCH 31.2 pg (27.0-35.0); MCHC 34.6 g/dL (32.0-36.0); MCV 90.2 fL (80-100); MPV 9.5 fL (7.6-11.3); Monocytes % 8.4 % (3.3-12.3); Platelets 198 thou/uL (152-406); RBC Red Blood Cell Count 4.04 M/uL (4.33-5.43); Red Cell Distribution Width 13.2 % (12.1-15.2)
[2023-09-29 07:03] LABS: Magnesium 2.3 mg/dL (1.6-2.4)
--- NOTE | 2023-09-29 08:53 | P.DS ---
Admission Date: 09/27/23 Discharge Date: 09/29/23 Disposition: ROUTINE DISCHARGE Discharge Condition: GOOD Reason for Admission: Abdominal pain Consultations: General surgery - Dr. Jaramillo Brief History of Present Illness: 43yo M, no PMH Patient presented with abdominal pain, pain is more in the epigastric to right upper quadrant, in the associated vomiting. Mild nausea,presented to the ED because of worsening symptoms. On arrival in the ED vital signs stable, afebrile, laboratory workup shows WBC of 11,000 with normal differentials, BMP unremarkable, mild elevated AST and ALT but normal alkaline phosphatase and total bili. Ultrasound of the right upper quadrant shows 2.1 cm gallstone near the neck. No pericholecystic fluid or gallbladder wall thickening. No sonographic findings to suggest acute cholecystitis. Patient is being admitted to observation. Surgery Dr. Jaramillo has been consulted. Hospital Course: Problem List: Acute ischemic cholecystitis with cholelithiasis, s/p lap endy with lysis of adhesions (09/26) Mildly elevated LFTs, improved Physician discharge instructions: Patient presented with worsening epigastric/RUQ pain with nausea/vomiting, secondary to acute ischemic cholecystitis with cholelithiasis. Dr. Jaramillo, general surgeon, was consulted and recommended MRCP to further negro luate which noted a 1.9 cm gallstone near the neck with mild gallbladder wall thickening. Patient was taken to OR on 09/27 and was found to have an ischemic gallbladder with extensive adhesions and underwent lap chope with lysis of adhesions and had [address] Patient did well post operatively, pain improving, nausea/vomiting resolved, afebrile without leukcytosis, and was deemed stable for discharge. Patient received ~3 days of empiric cefepime while hospitalized and is to complete 1 more week of augmentin on discharge for total of 10 days of antibiotics. Follow up with Dr. Jaramillo in office next week on 10/02 for follow up and removal of EL drain. Medications: Augmentin x1 week twice daily tylenol #3 30 pills as needed for pain okay to take over the counter stool softener - colace Follow up: PCP 3-[address] Jaramillo in office next week on 10/02 Please call to schedule / confirm appointments Physical Exam: GEN: Alert, oriented, NAD HEENT: Normal conjunctiva, sclera anicteric CV: Regular rate and rhythm, no edema Pulm: Nonlabored respirations on room air, clear bilaterally ABD: soft, nontender, nondistended, EL drain in place MSK: no joint tenderness Integumentary: No rashes Neuro: Normal speech, normal affect Vital Signs/Physical Exam: Temp Pulse Resp BP Pulse Ox 97.7 F 77 17 90/55 L 97 09/29/23 04:00 09/29/23 04:00 09/29/23 04:00 09/29/23 04:00 09/29/23 04:00 Laboratory Data at Discharge: WBC 7.20 thou/uL (4.3-10.9) 09/29/23 06:37 Hgb 12.6 g/dL (13.6-17.9) L 09/29/23 06:37 Hct 36.4 % (39.6-49.0) L 09/29/23 06:37 Plt Count 198 thou/uL (152-406) 09/29/23 06:37 Sodium 138 mEq/L (136-145) 09/29/23 06:37 Potassium 4.0 mEq/L (3.5-5.1) 09/29/23 06:37 BUN 6 mg/dL (7-18) L 09/29/23 06:37 Creatinine 0.91 mg/dL (0.70-1.30) 09/29/23 06:37 Glucose 105 mg/dL (74-106) 09/29/23 06:37 Phosphorus 3.4 mg/dL (2.5-4.9) 09/28/23 03:50 Magnesium 2.3 mg/dL (1.6-2.4) 09/29/23 06:37 Total Bilirubin 0.5 mg/dL (0.2-1.0) 09/27/23 04:25 AST 33 U/L (15-37) 09/27/23 04:25 ALT 99 U/L (16-61) H 09/27/23 04:25 Alkaline Phosphatase 95 U/L (45-117) 09/27/23 04:25 Lipase 75 U/L (13-75) 09/26/23 20:44 Home Medications: Amox/Clavulanate [Augmentin 875-125 Tab] 875 mg PO BID 10 Days #20 tab 09/29/23 Codeine/APAP [Tylenol W/Codeine #3 tab] 1 tab PO Q6HP PRN #30 tab 09/29/23 New Medications: Codeine/APAP [Tylenol W/Codeine #3 tab] 1 tab PO Q6HP PRN #30 tab PRN Reason: Pain Amox/Clavulanate [Augmentin 875-125 Tab] 875 mg PO BID 10 Days #20 tab Physician Discharge Instructions: Physician discharge instructions: Patient presented with worsening epigastric/RUQ pain with nausea/vomiting, secondary to acute ischemic cholecystitis with cholelithiasis. Dr. Jaramillo, general surgeon, was consulted and recommended MRCP to further evaluate which noted a 1.9 cm gallstone near the neck with mild gallbladder wall thickening. Patient was taken to OR on 09/27 and was found to have an ischemic gallbladder with extensive adhesions and underwent lap chope with lysis of adhesions and had [address] Patient did well post operatively, pain improving, nausea/vomiting resolved, afebrile without leukcytosis, and was deemed stable for discharge. Patient received ~3 days of empiric cefepime while hospitalized and is to complete 1 more week of augmentin on discharge for total of 10 days of antibiotics. Follow up with Dr. Jaramillo in office next week on 10/02 for follow up and removal of EL drain. Medications: Augmentin x1 week twice daily tylenol #3 30 pills as needed for pain okay to take over the counter stool softener - colace Follow up: PCP 3-[address] Jaramillo in office ~1 week. Please call to schedule / confirm appointments. No heavy lifting > 10 lbs or strenuous exercise for 4-6 weeks or until instructed otherwise by Dr. Ella Vick to shower with running water. Do not submerge wound underwater. Keep wound clean and dry Record EL drain output resume home meds and diet Follow up in Dr. Jaramillo office--SunOctober 02, call for appointment Followup: NONE,NONE [Primary Care Provider] -
[2023-09-29 09:01] VITALS: O2SAT 97
[2023-09-29 09:20] VITALS: BP 117/71; TEMP 99.5
--- NOTE | 2023-09-29 11:19 | PN ---
Date of Progress Note: 09/29/2023 Subjective: The patient is awake, alert, tolerating diet, passing gas, pain controlled on p.o. pain medication, ambulating and afebrile. Objective: Vital Signs: Stable, he is afebrile. Abdomen: Soft, slightly distended. No peritonitis. Dressing is clean, dry, intact. EL output was 40 mL last shift. Laboratory Data: White count is 7.2. There is no left shift. His H and H are stable, is 12.6 and 3 6.4. Assessment: Status post lap choly and lysis of adhesion. Recommendations: The patient is surgically cleared for discharge on oral antibiotics and pain medici ne. Discharge instruction given to the patient and documented plan of care discussed with the patien t's family and Dr. Parra. /MODL Voice ID: [id number] Report ID: [id number]
== END 2023-09-29 11:55 | disposition home or self-care (01) | DRG 419 ==
LOC: ER 19:43 → ERHOLD 23:57 → 2ND 09-27 01:13 → OBSVTOIN 09-27 13:34
PROVIDERS: ADMIT Internal Medicine; ATTEND Hospitalist
PROC: 0FN44ZZ Release Gallbladder, Percutaneous Endoscopic Approach (ICD-10-PCS; 2023-09-27)
PROC: 0FT44ZZ Resection of Gallbladder, Percutaneous Endoscopic Approach (ICD-10-PCS; principal; 2023-09-27 11:30)
DX: K80.00 Calculus of gallbladder with acute cholecystitis without obstruction (principal); K38.8 Other specified diseases of appendix; K66.0 Peritoneal adhesions (postprocedural) (postinfection); R79.89 Other specified abnormal findings of blood chemistry; Z87.891 Personal history of nicotine dependence
CPT/HCPCS: 36415; 74181; 76705; 80048; 80053; 82947; 83690; 83735; 84100; 84443; 85025; 88304; 94010; 96365; 96375; 99285; G0378; J0692; J1170; J2001; J2250; J2405; J2543; J2704; J2710; J3010; J7030; J7040; J7120